=== PATIENT | female | born 1965 | race Caucasian/White ===

== ENCOUNTER 2023-06-19 13:05 | Inpatient (IN) | payer OTHER ==
[2023-06-19 15:33] LABS: BASO % 0.4 % (0-2.0); EOS % 0.6 % (0-4.5); HEMATOCRIT 30.4 % (32.4-45.2); HEMOGLOBIN 9.5 GM/dL (10.7-15.3); LYMPH % 8.2 % (8-40); MCH 28.4 pg (25.7-33.7); MCHC 31.1 g/dl (32.0-36.0); MEAN CELL VOLUME 91.2 fl (80-96); MEAN PLT VOLUME 7.4 fl (7.5-11.1); MONO % 9.9 % (3.8-10.2); NEUT % 80.9 % (42.8-82.8); PLATELET COUNT 318 10^3/uL (134-434); RBC 3.33 M/mm3 (3.60-5.2); RDW 18.8 % (11.6-15.6); WHITE BLOOD COUNT 15.5 K/mm3 (4.0-10.0)
[2023-06-19] MEDS ORDERED: CEFEPIME 2 GM/100 ML BAG IVPB ONE (17:43)
[2023-06-19] MEDS: CEFEPIME HCL 2 GM VIAL (RESTRICTED TO ID) IVPB ONE (17:45)
[2023-06-19] MEDS ORDERED: VANCOMYCIN 1 GRAM (PRE-DOCKED) 1,000 MG/250 ML BAG IVPB ONE (18:00)
[2023-06-19] MEDS: VANCOMYCIN 1,000 MG in DEXTROSE 5%-WATER - 250 ML IVPB ONE (18:22)
[2023-06-19 18:53] LABS: POTASSIUM 3.7 mmol/L (3.5-5.1)
[2023-06-19 18:55] LABS: BLOOD UREA NITROGEN 35.1 mg/dL (7-18); CALCIUM 9.7 mg/dL (8.5-10.1)
[2023-06-19 18:58] LABS: CREATININE 4.8 mg/dL (0.55-1.3)
[2023-06-19 18:59] LABS: PHOSPHOROUS 3.7 mg/dL (2.5-4.9)
[2023-06-19 19:00] LABS: BILIRUBIN,TOTAL 0.6 mg/dL (0.2-1); TOT PROT 6.2 g/dl (6.4-8.2)
[2023-06-19] MEDS ORDERED: ALPRAZolam 1 MG TABLET ONE (19:02)
[2023-06-19] MEDS: ALPRAZolam 1 MG TABLET PO PRN (19:04)
[2023-06-19] MEDS ORDERED: LEVALBUTEROL HCL 0.63 MG/3 ML VIAL.NEB. IH ONE (22:28)
[2023-06-19] MEDS: LEVALBUTEROL HCL 0.63 MG/3 ML VIAL.NEB. IH ONE (22:33)
[2023-06-19] MEDS: ALBUTEROL SO4 2.5/IPRATROPIUM 0.5 INH SOL 3 ML VIAL.NEB. NEB ONE (23:18)
[2023-06-20] MEDS: MIDODRINE HCL 5 MG TABLET PO SCH (01:05)
[2023-06-20] MEDS: ALPRAZolam 0.25 MG TABLET PO ONE (03:48)
[2023-06-20 07:31] LABS: BASO % 0.6 % (0-2.0); EOS % 2.7 % (0-4.5); HEMATOCRIT 28.8 % (32.4-45.2); MCH 28.2 pg (25.7-33.7); MCHC 31.2 g/dl (32.0-36.0); MEAN CELL VOLUME 90.4 fl (80-96); MEAN PLT VOLUME 7.8 fl (7.5-11.1); MONO % 7.7 % (3.8-10.2); PLATELET COUNT 320 10^3/uL (134-434); RBC 3.19 M/mm3 (3.60-5.2); RDW 18.8 % (11.6-15.6); WHITE BLOOD COUNT 13.9 K/mm3 (4.0-10.0)
[2023-06-20 07:49] LABS: POTASSIUM 3.9 mmol/L (3.5-5.1)
[2023-06-20 07:51] LABS: CALCIUM 9.5 mg/dL (8.5-10.1)
[2023-06-20 07:52] LABS: BLOOD UREA NITROGEN 48.6 mg/dL (7-18)
[2023-06-20 07:53] LABS: INR 1.81 (0.83-1.09); PROTHROMBIN TIME (PATIENT) 20.9 SEC (9.7-13.0)
[2023-06-20 07:55] LABS: CREATININE 5.8 mg/dL (0.55-1.3)
[2023-06-20] MEDS ORDERED: SENNOSIDES 8.6MG TABLET (FP) PO PRN (08:17)
[2023-06-20] MEDS: CLOPIDOGREL BISULFATE 75 MG TABLET (FP) PO SCH (09:10)
[2023-06-20] MEDS: predniSONE 5 MG TABLET (UD) PO SCH (09:10)
[2023-06-20] MEDS: PANTOPRAZOLE 40 MG TABLET PO SCH (09:10)
[2023-06-20] MEDS: POLYETHYLENE GLYCOL (HEALTHYLAX) 3350 17 GM PACKET PO SCH (09:11)
[2023-06-20] MEDS: AMIODARONE HCL 200 MG TABLET PO SCH (09:11)
[2023-06-20] MEDS: ROFLUMILAST 500 MCG TABLET PO SCH (11:30)
[2023-06-20] MEDS: VANCOMYCIN 500 MG in DEXTROSE 5%-WATER - 100 ML IVPB ONE (11:30)
[2023-06-20] MEDS: oxyCODONE HCL 5 MG TABLET PO PRN (12:22)
[2023-06-20] MEDS ORDERED: CEFEPIME HCL 1 GM VIAL (RESTRICTED TO ID) IVPB ONE (14:00)
[2023-06-20] MEDS: CEFEPIME 1 GM in DEXTROSE 5%-WATER 100 ML IVPB ONE (14:09)
[2023-06-20] MEDS: methylPREDNISolone NA SUCC 40 MG/1 ML VIAL IVPUSH SCH (14:09)
[2023-06-20] MEDS: busPIRone HCL 5 MG TABLET PO SCH (14:09)
[2023-06-20] MEDS: ALBUTEROL SO4 2.5/IPRATROPIUM 0.5 INH SOL 3 ML VIAL.NEB. NEB PRN (15:05)
[2023-06-20] MEDS: RIVAROXABAN 15 MG TABLET PO SCH (17:34)
[2023-06-20] MEDS: ROSUVASTATIN CA 10 MG TABLET PO SCH (21:48)
[2023-06-20] MEDS: MIRTAZAPINE 15 MG TABLET (FP) PO SCH (21:48)
[2023-06-20] MEDS: MELATONIN 5 MG TABLETS PO SCH (21:48)
[2023-06-21] MEDS: ALPRAZolam 0.25 MG TABLET PO ONE (01:02)
[2023-06-21] MEDS: SIMETHICONE 80 MG TAB.CHEW (FP) PO PRN (07:53)
[2023-06-21] MEDS: CEFEPIME 1 GM in DEXTROSE 5%-WATER 100 ML IVPB SCH (10:01)
[2023-06-21] MEDS ORDERED: LEVALBUTEROL HCL 0.31 MG/3 ML VIAL.NEB IH PRN (13:46)
[2023-06-21] MEDS: FLUTICASONE/UMECLIDIN/VILANTER(200-62.5-25 TRELEGY ELLIPTA) INAHLER IH SCH (14:23)
[2023-06-21] MEDS ORDERED: SODIUM CHLORIDE 250 ML IV PRN (14:26)
[2023-06-21] MEDS: ALBUTEROL SO4 2.5/IPRATROPIUM 0.5 INH SOL 3 ML VIAL.NEB. NEB SCH (14:44)
[2023-06-21] MEDS: AMINO ACIDS/PROTEIN HYDROLYS 30 ML LIQUID.PKT PO SCH (18:51)
[2023-06-22] MEDS: ALPRAZolam 1 MG TABLET PO PRN (10:53)
[2023-06-22] MEDS: NYSTATIN 500,000 UNITS/5 ML SUSPENSION PO SCH (11:54)
[2023-06-22] MEDS ORDERED: SODIUM CHLORIDE 250 ML IV PRN (19:56)
[2023-06-22] MEDS: methylPREDNISolone NA SUCC 40 MG/1 ML VIAL IVPUSH SCH (21:49)
[2023-06-22] MEDS: guaiFENesin 200 MG/10 ML 10 ML UNIT-DOSE CUPS PO PRN (22:11)
[2023-06-23] MEDS: IRON SUCROSE INJECTION 200 MG in SODIUM CHLORIDE 100 ML IVPB ONE (22:55)
[2023-06-24] MEDS ORDERED: busPIRone HCL 5 MG TABLET PO SCH (08:46)
[2023-06-24 08:56] LABS: HEMATOCRIT 29.1 % (32.4-45.2); MCH 28.5 pg (25.7-33.7); MEAN CELL VOLUME 91.8 fl (80-96); MEAN PLT VOLUME 7.8 fl (7.5-11.1); PLATELET COUNT 378 10^3/uL (134-434); RBC 3.17 M/mm3 (3.60-5.2); RDW 18.6 % (11.6-15.6); WHITE BLOOD COUNT 9.2 K/mm3 (4.0-10.0)
[2023-06-24 09:35] LABS: POTASSIUM 5.4 mmol/L (3.5-5.1)
[2023-06-24 09:36] LABS: ALBUMIN 3.1 g/dl (3.4-5.0); BILIRUBIN,TOTAL 0.6 mg/dL (0.2-1); BLOOD UREA NITROGEN 63.2 mg/dL (7-18); CREATININE 3.9 mg/dL (0.55-1.3); TOT PROT 6.5 g/dl (6.4-8.2)
[2023-06-24 09:58] LABS: ANISOCYTOSIS 0; HELMET CELLS 0; HOWELL-JOLLY BODIES 0; MACROCYTOSIS 0; OVALOCYTE 0; ROULEAU 0; SICKELED CELLS 0; TARGET CELLS 0; TEAR DROP CELLS 0; TOXIC GRANULATION 0
[2023-06-24] MEDS: ALBUTEROL SO4 2.5/IPRATROPIUM 0.5 INH SOL 3 ML VIAL.NEB. NEB SCH (11:30)
[2023-06-24 11:31] LABS: HEMATOCRIT 29.7 % (32.4-45.2); HEMOGLOBIN 9.1 GM/dL (10.7-15.3); LYMPH % 3.6 % (8-40); MCH 28.2 pg (25.7-33.7); MCHC 30.6 g/dl (32.0-36.0); MEAN CELL VOLUME 92.1 fl (80-96); MEAN PLT VOLUME 7.5 fl (7.5-11.1); NEUT % 90.4 % (42.8-82.8); PLATELET COUNT 382 10^3/uL (134-434); RBC 3.23 M/mm3 (3.60-5.2); RDW 18.3 % (11.6-15.6); WHITE BLOOD COUNT 8.8 K/mm3 (4.0-10.0)
[2023-06-24 11:40] LABS: POTASSIUM 5.3 mmol/L (3.5-5.1)
[2023-06-24 11:42] LABS: BLOOD UREA NITROGEN 74.8 mg/dL (7-18); CALCIUM 11.1 mg/dL (8.5-10.1)
[2023-06-24 11:43] LABS: ALBUMIN 3.1 g/dl (3.4-5.0)
[2023-06-24 11:47] LABS: BILIRUBIN,TOTAL 0.5 mg/dL (0.2-1); TOT PROT 6.7 g/dl (6.4-8.2)
[2023-06-24] MEDS: busPIRone HCL 5 MG TABLET PO SCH (14:46)
[2023-06-25] MEDS ORDERED: SODIUM CHLORIDE 250 ML IV PRN (08:44)
[2023-06-25] MEDS: EPOETIN ALFA-EPBX 3,000 UNIT/ML VIAL SQ ONE (11:27)
[2023-06-26] MEDS: predniSONE 10 MG TABLET (UD) PO SCH (11:27)
[2023-06-26] MEDS: CEFUROXIME AXETIL 250 MG TABLET PO SCH (12:01)
[2023-06-26 15:34] VITALS: BMI 18.1
[2023-06-27] MEDS ORDERED: ALBUTEROL SO4 2.5/IPRATROPIUM 0.5 INH SOL 3 ML VIAL.NEB. NEB ONE (03:43)
[2023-06-27] MEDS ORDERED: SODIUM CHLORIDE 250 ML IV PRN (11:27)
[2023-06-27 11:39] VITALS: RESP 18
[2023-06-27] MEDS: EPOETIN ALFA-EPBX 2,000 UNIT/ML VIAL IVPUSH ONE (12:33)
[2023-06-27 15:28] VITALS: BP 108/45; PULSE 121; TEMP 98.4
== END 2023-06-27 16:22 | DRG 291 ==
LOC: JER 13:05 → JERBED 18:24 → J4W 06-20 02:00
PROVIDERS: ADMIT Internal Medicine; ATTEND Internal Medicine
PROC: 5A1D70Z Performance of Urinary Filtration, Intermittent, Less than 6 Hours Per Day (ICD-10-PCS; principal; 2023-06-27)
DX: I13.2 Hypertensive heart and chronic kidney disease with heart failure and with stage 5 chronic kidney disease, or end stage renal disease (principal); E43 Unspecified severe protein-calorie malnutrition; I50.33 Acute on chronic diastolic (congestive) heart failure; N18.6 End stage renal disease; J18.9 Pneumonia, unspecified organism; J44.1 Chronic obstructive pulmonary disease with (acute) exacerbation; Z99.2 Dependence on renal dialysis; D64.9 Anemia, unspecified; E88.09 Other disorders of plasma-protein metabolism, not elsewhere classified; F41.9 Anxiety disorder, unspecified; B37.9 Candidiasis, unspecified; I48.0 Paroxysmal atrial fibrillation; I25.10 Atherosclerotic heart disease of native coronary artery without angina pectoris; Z68.20 Body mass index [BMI] 20.0-20.9, adult
CPT/HCPCS: 0241U-QW; 36415; 71045-TC-FY; 71250-TC; 80048; 80053; 82728; 83540; 83550; 83735; 83880; 84100; 84439; 84443; 84481; 84484; 85025; 85610; 85730; 86704; 86803; 87040; 87340; 93005; 93010; 93306-TC; 94640; 99285-25; G0480; J1756; Q5106